=== PATIENT | female | born 1985 | race Caucasian/White ===

== ENCOUNTER → 2016-09-17 | Outpatient (CLI) | payer OTHER ==
[~2016-09-17] MED LIST: LEVO75TA PO; MTR600X PO; OXYC5TAB PO; PRENTAB26 PO
== END | disposition home or self-care (01) ==
LOC: C.LABPVFM 08:12
PROVIDERS: ATTEND Internal Medicine Endocrinology, Diabetes & Metabolism
DX: E03.8 Other specified hypothyroidism (principal)

== ENCOUNTER → 2016-11-13 | Outpatient (CLI) | payer OTHER ==
[2016-11-13 18:12] LABS: MEAN CELL VOLUME 83.3 fL (80-100); MEAN CORPUSCULAR HEMOGLOBIN 28.8 pg (25-34); MEAN CORPUSCULAR HGB CONC 34.6 g/dl (32-36); MEAN PLATELET VOLUME 9.1 fL (7.4-10.4); PLATELET COUNT 196 K/uL (130-400); RED BLOOD COUNT 4.68 M/uL (4.2-5.4); WHITE BLOOD COUNT 7.28 K/uL (4.8-10.8)
[2016-11-13 18:42] LABS: PROLACTIN 2.98 ng/mL
== END | disposition home or self-care (01) ==
LOC: C.LAB 17:16
PROVIDERS: ATTEND Specialist
DX: Z31.41 Encounter for fertility testing (principal); Z11.3 Encounter for screening for infections with a predominantly sexual mode of transmission; Z11.4 Encounter for screening for human immunodeficiency virus [HIV]; Z11.9 Encounter for screening for infectious and parasitic diseases, unspecified; Z13.21 Encounter for screening for nutritional disorder; Z13.0 Encounter for screening for diseases of the blood and blood-forming organs and certain disorders involving the immune mechanism

== ENCOUNTER → 2016-12-12 | Outpatient (CLI) | payer OTHER ==
[~2016-12-12] MED LIST changes: +IBUP-1428 PO; +LEVO100T7 PO; +ONDA4TAB10 SL; +TAMS0.4C38 PO
== END | disposition home or self-care (01) ==
LOC: C.LAB1850 09:06
PROVIDERS: ATTEND Specialist
DX: Z31.41 Encounter for fertility testing (principal); O09.00 Supervision of pregnancy with history of infertility, unspecified trimester

== ENCOUNTER → 2017-06-12 | Outpatient (CLI) | payer OTHER ==
[~2017-06-12] MED LIST changes: -IBUP-1428 PO; -LEVO100T7 PO; -ONDA4TAB10 SL; -TAMS0.4C38 PO
== END | disposition home or self-care (01) ==
LOC: C.LABPVFM 14:47
PROVIDERS: ATTEND Internal Medicine Endocrinology, Diabetes & Metabolism
DX: E03.8 Other specified hypothyroidism (principal)

== ENCOUNTER 2017-07-28 03:05 | Emergency (ER) | payer OTHER ==
[~2017-07-28] VITALS: Ht 167.6 cm; Wt 54.7 kg
[2017-07-28 03:14] VITALS: TEMP 36.8; Ht 167.6 cm; Wt 54.7 kg
[2017-07-28] MEDS ORDERED: ONDANSETRON INJ 2 MG/ML 2 ML VIAL IV STA (03:28)
[2017-07-28 03:44] LABS: BASO % 0.2 %; BASO ABS # 0.02 K/uL (0-0.2); COMPLETE YES; EOS % 0.5 %; HEMATOCRIT 33.9 % (37-47); IG% 0.1 %; LYMPH % 21.6 %; LYMPH ABS # 1.75 K/uL (1.2-3.4); MEAN CELL VOLUME 87.1 fL (80-100); MEAN CORPUSCULAR HEMOGLOBIN 29.8 pg (25-34); MEAN CORPUSCULAR HGB CONC 34.2 g/dl (32-36); MEAN PLATELET VOLUME 9.5 fL (7.4-10.4); MONO % 5.7 %; NEUT % 71.9 %; PLATELET COUNT 164 K/uL (130-400); RED BLOOD COUNT 3.89 M/uL (4.2-5.4)
--- NOTE | 2017-07-28 03:50 | EMERGENCY ROOM VISIT NOTE ---
History Report prepared by [place]: Krystle Conn Under the Supervision of: Dr. Juna Carlos Nunez D.O. First contact with patient: 03:27 Chief Complaint: ABDOMINAL PAIN Stated Complaint: ABDOMINAL PAIN Nursing Triage Summary: Pt has had nausea thursday and thursday and didn't eat; it let up Thursday and she ate. Tonight at 2300, pt had bad lower left back pain, which radiated to left lower abdomen at 0215. Described shooting/stabbing in back and cramping in abdomen. Pt also had diarrhea this morning. Currentlyl nauseated. No other complaints voiced. History of Present Illness The patient is a 31 year old female who presents to the Emergency Room with complaints of persistent abdominal pain which started 2300 yesterday. The patient first had left flank pain. The pain then moved into the LLQ of the abdomen. She describes the pain as cramping. She has been nauseous for a few days. The pain is now much improved. She had diarrhea this morning. Her last menstrual period was 2 weeks ago. She notes she had an IUD placed 1 month ago. She denies any history of kidney stone or infection. Source of History: patient Onset: 2300 yesterday Position: abdomen (LLQ) Quality: cramping Timing: other (persistent) Associated Symptoms: + nausea, + back pain, + diarrhea Review of Systems See HPI for pertinent positives and negatives. A total of ten systems were reviewed and were otherwise negative. Past Medical & Surgical Medical Problems: (1) premature rupture of membranes (PPROM) with unknown onset of labor Surgical Problems: (1) Previous section Family History Diabetes mellitus FH: cancer FH: heart disease Hypertension Kidney disease Kidney stones Social History Smoking Status: Never Smoker Alcohol Use: none Housing Status: lives with family Occupation Status: employed Current/Historical Medications Scheduled Levothyroxine Sodium (Levothyroxine Sodium), 1 TAB PO DAILY Ondasetron Odt (Zofran Odt), 4 MG SL Q6H Tamsulosin Hcl (Flomax), 0.4 MG PO DAILY Scheduled PRN Ibuprofen (Motrin), 800 MG PO Q8H PRN for Pain Allergies Coded Allergies: Blue Dyes (Parenteral) (Verified Allergy, Unknown, RASH, 07/28/17) Uncoded Allergies: STEVIA (Allergy, Intermediate, SWELLING OF LIPS, 09/05/15) Physical Exam Vital Signs Date Time Temp Pulse Resp B/P (MAP) Pulse Ox O2 Delivery O2 Flow Rate FiO2 07/28/17 05:10 69 18 98 07/28/17 05:00 98/51 07/28/17 04:55 73 17 98 07/28/17 04:40 73 17 98 07/28/17 04:31 87/60 07/28/17 04:25 76 15 99 07/28/17 04:10 86 20 98 07/28/17 04:00 92/54 07/28/17 03:50 74 18 99 07/28/17 03:35 79 99 07/28/17 03:20 81 99 Room Air 07/28/17 03:14 36.8 76 18 100/52 98 Room Air 07/28/17 03:14 100/52 Physical Exam GENERAL: Awake, alert, well-appearing, in no distress HENT: Normocephalic, atraumatic. Oropharynx unremarkable. EYES: Normal conjunctiva. Sclera non-icteric. NECK: Supple. No nuchal rigidity. FROM. No JVD. RESPIRATORY: Clear to auscultation. CARDIAC: Regular rate, normal rhythm. Extremities warm and well perfused. Pulses equal. ABDOMEN: Soft, non-distended. No tenderness to palpation. No rebound or guarding. No masses. RECTAL: Deferred. MUSCULOSKELETAL: Chest examination reveals no tenderness. The back is symmetrical on inspection without obvious abnormality. There is mild left CVA tenderness to palpation. No joint edema. LOWER EXTREMITIES: Calves are equal size bilaterally and non-tender. No edema. No discoloration. NEURO: Normal sensorium. No sensory or motor deficits noted. SKIN: No rash or jaundice noted. Medical Decision & Procedures Laboratory Results 07/28/17 03:30 Red Blood Count 3.89, Mean Corpuscular Volume 87.1, Mean Corpuscular Hemoglobin 29.8, Mean Corpuscular Hemoglobin Concent 34.2, Mean Platelet Volume 9.5, Neutrophils (%) (Auto) 71.9, Lymphocytes (%) (Auto) 21.6, Monocytes (%) (Auto) 5.7, Eosinophils (%) (Auto) 0.5, Basophils (%) (Auto) 0.2, Neutrophils # (Auto) 5.82, Lymphocytes # (Auto) 1.75, Monocytes # (Auto) 0.46, Eosinophils # (Auto) 0.04, Basophils # (Auto) 0.02 07/28/17 03:30 Test 07/28/17 03:30 07/28/17 04:00 White Blood Count 8.10 K/uL (4.8-10.8) Red Blood Count 3.89 M/uL (4.2-5.4) Hemoglobin 11.6 g/dL (12.0-16.0) Hematocrit 33.9 % (37-47) Mean Corpuscular Volume 87.1 fL (80-100) Mean Corpuscular Hemoglobin 29.8 pg (25-34) Mean Corpuscular Hemoglobin Concent 34.2 g/dl (32-36) Platelet Count 164 K/uL (130-400) Mean Platelet Volume 9.5 fL (7.4-10.4) Neutrophils (%) (Auto) 71.9 % Lymphocytes (%) (Auto) 21.6 % Monocytes (%) (Auto) 5.7 % Eosinophils (%) (Auto) 0.5 % Basophils (%) (Auto) 0.2 % Neutrophils # (Auto) 5.82 K/uL (1.4-6.5) Lymphocytes # (Auto) 1.75 K/uL (1.2-3.4) Monocytes # (Auto) 0.46 K/uL (0.11-0.59) Eosinophils # (Auto) 0.04 K/uL (0-0.5) Basophils # (Auto) 0.02 K/uL (0-0.2) RDW Standard Deviation 40.4 fL (36.4-46.3) RDW Coefficient of Variation 12.7 % (11.5-14.5) Immature Granulocyte % (Auto) 0.1 % Immature Granulocyte # (Auto) 0.01 K/uL (0.00-0.02) Anion Gap 5.0 mmol/L (3-11) Est Creatinine Clear Calc Drug Dose 85.1 ml/min Estimated GFR () 109.7 Estimated GFR (Non- 94.7 BUN/Creatinine Ratio 16.3 (10-20) Calcium Level 8.6 mg/dl (8.5-10.1) Total Bilirubin 1.0 mg/dl (0.2-1) Direct Bilirubin 0.2 mg/dl (0-0.2) Aspartate Amino Transf (AST/SGOT) 14 U/L (15-37) Alanine Aminotransferase (ALT/SGPT) 24 U/L (12-78) Alkaline Phosphatase 44 U/L (45-117) Total Protein 6.8 gm/dl (6.4-8.2) Albumin 3.4 gm/dl (3.4-5.0) Lipase 148 U/L (73-393) Urine Color YELLOW Urine Appearance CLEAR (CLEAR) Urine pH 8.5 (4.5-7.5) Urine Specific [place] 1.017 (1.000-1.030) Urine Protein NEG (NEG) Urine Glucose (UA) NEG (NEG) Urine Ketones NEG (NEG) Urine Occult Blood 3+ (NEG) Urine Nitrite NEG (NEG) Urine Bilirubin NEG (NEG) Urine Urobilinogen NEG (NEG) Urine Leukocyte Esterase TRACE (NEG) Urine WBC (Auto) 1-5 /hpf (0-5) Urine RBC (Auto) >30 /hpf (0-4) Urine Hyaline Casts (Auto) 0 /lpf (0-5) Urine Epithelial Cells (Auto) >30 /lpf (0-5) Urine Bacteria (Auto) NEG (NEG) Urine Renal Epithelial Cells /lpf (0-5) Urine Crystals CALCIUM OXALATE (NONE Urine Test NEG (NEG) Laboratory results reviewed by me Medications Administered Medications (Trade) Dose Ordered Sig/[place] Route Start Time Stop Time Status Last Admin Dose Admin Ondansetron HCl (Zofran Inj) 4 mg NOW STAT IV 07/28/17 03:28 07/28/17 03:29 DC 07/28/17 03:40 4 MG ED Course 0328: Zofran Inj 4 mg IV. 0332: The patient was evaluated in room B2. A complete history and physical exam was performed. 0527: I reevaluated the patient. Discussed results and discharge instructions: she verbalized understanding and agreement. The patient is ready for discharge. Medical Decision Differential diagnoses include but are not limited to; UTI, pyelonephritis, kidney stone, gastroenteritis. Patient had complete resolution of left flank pain upon arrival emergency department. Patient has blood in her urine and calcium oxalate crystals. Has a normal white blood cell count no signs of infection. I suspect the patient has a kidney stone and renal colic. Patient on reexamination is feeling much improved at 5:30 AM is in no pain. I do not feel the need for a CAT scan at this time I'm going to treat her for renal colic and kidney stones Medication Reconcilliation Current Medication List: was personally reviewed by me Blood Pressure Screening Patient's blood pressure: Normal blood pressure Blood pressure disposition: Did not require urgent referral Impression Primary Impression: Flank pain Additional Impressions: Renal colic Kidney stone Scribe Attestation The scribe's documentation has been prepared under my direction and personally reviewed by me in its entirety. I confirm that the note above accurately reflects all work, treatment, procedures, and medical decision making performed by me. Departure Information Dispostion Home / Self-Care Prescriptions Ibuprofen (Motrin) 800 Mg Tab 800 MG PO Q8H Y for Pain for 5 Days, #15 TAB Prov: Juan Carlos Nunez, DO 07/28/17 Ondasetron Odt (ZOFRAN ODT) 4 Mg Tab 4 MG SL Q6H for Nausea, #6 TAB Prov: Juan Carlos Nunez, DO 07/28/17 Tamsulosin Hcl (FLOMAX) 0.4 Mg Cap 0.4 MG PO DAILY, #10 CAP Prov: Juan Carlos Nunez, DO 07/28/17 Referrals No Doctor, Assigned (PCP) Eddie Austin MD, Urology Patient Instructions Kidney Stones - [facility], [facility] Additional Instructions Follow-up with primary care physician, if pain increases return for worsening pain, follow-up with urologist Problem Qualifiers
[2017-07-28] MEDS ORDERED: LEVO100T7 PO (03:58)
[2017-07-28 04:03] LABS: BUN/CREATININE RATIO 16.3 (10-20); CALCIUM 8.6 mg/dl (8.5-10.1); CREATININE 0.82 mg/dl (0.60-1.20); POTASSIUM 3.4 mmol/L (3.5-5.1)
[2017-07-28 04:13] LABS: URINE APPEARANCE CLEAR (CLEAR); URINE BILIRUBIN NEG (NEG); URINE COLOR YELLOW; URINE EPITHELIAL CELL AUTO >30 /lpf (0-5); URINE NITRITE NEG (NEG); URINE PH 8.5 (4.5-7.5); URINE SPECIFIC GRAVITY 1.017 (1.000-1.030); UROBILINOGEN NEG (NEG); ZZUR CULT IF INDIC CLEAN CATCH NO
[2017-07-28 04:19] LABS: MANUAL MICROSCOPIC REQUIRED? NO; REVIEW REQ? YES
[2017-07-28 05:30] VITALS: PULSE 75
[2017-07-28] MEDS ORDERED: IBUP-1428 PO (05:37)
[2017-07-28] MEDS ORDERED: TAMS0.4C38 PO (05:37)
[2017-07-28] MEDS ORDERED: ONDA4TAB10 SL (05:37)
[2017-07-28 05:44] VITALS: BP 91/52; O2SAT 100
== END 2017-07-28 05:46 | disposition home or self-care (01) ==
LOC: EDBD 03:05 → C.EDB 03:06
DX: R10.32 Left lower quadrant pain (principal); R11.0 Nausea; N20.0 Calculus of kidney; N23 Unspecified renal colic; Z87.442 Personal history of urinary calculi; Z79.899 Other long term (current) drug therapy

== ENCOUNTER → 2017-08-27 | Outpatient (CLI) | payer OTHER ==
[~2017-08-27] MED LIST changes: +LEVO100T7 PO; -LEVO75TA PO; -MTR600X PO; +ONDA4TAB10 SL; -OXYC5TAB PO; -PRENTAB26 PO
== END | disposition home or self-care (01) ==
LOC: C.LAB1850 13:00
PROVIDERS: ATTEND Internal Medicine Endocrinology, Diabetes & Metabolism
DX: E03.8 Other specified hypothyroidism (principal)

== ENCOUNTER → 2017-10-27 | Outpatient (CLI) | payer OTHER ==
[2017-10-29 14:29] LABS: MICROSOMAL AB 1 IU/ML (<9)
[2017-11-02 18:16] LABS: INSULIN LIKE GROWTH FACTOR-I 175 ng/mL (53-331)
== END | disposition home or self-care (01) ==
LOC: C.LABPVFM 16:11
PROVIDERS: ATTEND Internal Medicine Endocrinology, Diabetes & Metabolism
DX: E03.8 Other specified hypothyroidism (principal); D49.7 Neoplasm of unspecified behavior of endocrine glands and other parts of nervous system